=== PATIENT | male | born 1960 ===

== ENCOUNTER 2017-11-30 06:04 | Inpatient (IN) | payer OTHER ==
[2017-11-30] VITALS (15 sets, daily range): BP systolic 75–145; BP diastolic 64–78
[~2017-11-30] VITALS: Ht 180.3 cm; Wt 127.0 kg
[~2017-11-30 06:04] MED LIST: HYDROCHLOROTH12.5 M2 ORAL; LOSARTAN POTASS50 MG ORAL; MELOXICAM7.5 MG/5 M ORAL; ceFAZolin 1gm in D5W 55ml IVPB ONE; celeBREX 200mg Cap **SURGERY PATIENTS ONLY ORAL ONE; oxyCONTIN 20mg tab ORAL ONE
--- NOTE | 2017-11-30 06:52 | Pre-Procedure Note/Attestation ---
Pre-Procedure Note/Attestation Complete Prior to Procedure Planned Procedure: left Procedure Narrative: Lt RON Indications for Procedure Pre-Operative Diagnosis: Left hip arthritis Attestation I attest that I discussed the nature of the procedure; its benefits; risks and complications; and alternatives (and the risks and benefits of such alternatives ), prior to the procedure, with the patient (or the patient's legal contact representative). I attest that, if there was a reasonable possibility of needing a blood transfusion, the patient (or the patient's legal contact representative) was given the [facility] standardized written summary, pursuant to the Angel Sarah Blood Safety Act ([place] Health and Safety Code # 1645, as amended). I attest that I re-evaluated the patient just prior to the surgery and that there has been no change in the patient's H&P, except as documented below: NONE Luis Diaz MD Nov 30, 2017 06:52
[2017-11-30] MEDS ORDERED: Bupivacaine 0.5% Inj 30 ml vial INJ ONE ×2 (07:02→09:41)
[2017-11-30] MEDS ORDERED: EPINEPHrine 1mg/1ml Amp ONE ×2 (07:02→09:31)
[2017-11-30] MEDS ORDERED: Bacitracin 50000 Units Vial ONE (07:03)
[2017-11-30] MEDS ORDERED: NeoSporin Gu Irrig 1ml Amp IRRIG ONE (07:03)
[2017-11-30] MEDS ORDERED: Midazolam 2mg/2ml Inj ONE (07:18)
[2017-11-30] MEDS ORDERED: fentaNYL 100 mcg/2 mL IV ONE (07:18)
[2017-11-30] MEDS ORDERED: Propofol 200mg/20ml IV ONE (07:20)
[2017-11-30] MEDS ORDERED: Succinylcholine 20mg/ml 10ml vial ONE (07:25)
[2017-11-30] MEDS ORDERED: Zemuron 50mg/5ml Inj IV ONE (07:25)
[2017-11-30] MEDS ORDERED: Acetaminophen (Non formulary) 100 ML IV ONE (07:30)
[2017-11-30] MEDS ORDERED: Tranexamic Acid(Epistaxis Use) TOPIC ONE ×2 (07:30)
[2017-11-30] MEDS ORDERED: Tranexamic Acid 1,000 MG in NS 65 ML IVPB ONE (07:45)
--- NOTE | 2017-11-30 08:15 | Anethesia Preoperative Eval ---
Anesthesia Pre-op PMH/ROS General Date of Evaluation: Nov 30, 2017 Time of Evaluation: 07:45 Anesthesiologist: Marycruz ASA Score: ASA 3 Mallampati Score Class I : Soft palate, uvula, fauces, pillars visible Class II: Soft palate, uvula, fauces visible Class III: Soft palate, base of uvula visible Class IV: Only hard plate visible Mallampati Classification: Class III Surgeon: Emily Diagnosis: L hip DJD Surgical Procedure: L hip arthroplasty Anesthesia History: none Social History: current smoker - occasional Family History: no anesthesia problems Allergies: Coded Allergies: No Known Allergies (Unverified , 11/30/17) Medications: see eMAR Past Medical History Cardiovascular: Reports: HTN; Denies: CAD, [place], valve dz, arrhythmia, other Pulmonary: Reports: BULMARO; Denies: asthma, COPD, other Gastrointestinal/Genitourinary: Reports: GERD; Denies: CRI, ESRD, other Neurologic/Psychiatric: Reports: other - chronic pain; Denies: dementia, CVA, depression/anxiety, TIA Endocrine: Reports: DM - borderline; Denies: hypothyroidism, steroids, other HEENT: Denies: cataract (L), cataract (R), glaucoma, IROQUOIS (L), IROQUOIS (R), other Hematology/Immune: Denies: anemia, DVT, bleeding disorder, other Musculoskeletal/Integumentary: Reports: DJD Other: obesity PMH Narrative: as above PSxH Narrative: Cholecystectomy Anesthesia Pre-op Phys. Exam Physician Exam Last Vital Signs Date Time Temp Pulse Resp B/P (MAP) Pulse Ox O2 Delivery O2 Flow Rate FiO2 11/30/17 07:18 Room Air 11/30/17 07:06 97.0 51 18 145/75 (98) 96 97.0 Constitutional: NAD Neurologic: CN 2-12 intact Cardiovascular: RRR, no M/R/G Respiratory: CTA Gastrointestinal: other - obesity Airway Exam Mallampati Score: Class III MO: full Neck: short ROM: limited Teeth: intact Dentures: no upper, no lower Anesthesia Pre-op A/P Labs see chart Studies Pre-op Studies: EKG - SR, CXR - WNL, PFTS - obstructive pattern, BULMARO clinically Risk Assessment & Plan Assessment: ASA 3 Plan: GA wit ETT Status Change Before Surgery: No Pre-Antibiotics Drug: Ancef 2gr. Given Within 1 Hr of Incision: Yes Time Given: 09:10 Gregg Joel MD Nov 30, 2017 08:15
[2017-11-30] MEDS ORDERED: Ketorolac 30mg Inj ONE (09:25)
[2017-11-30] MEDS ORDERED: Morphine Sulfate 10mg/ml Inj ONE (09:25)
[2017-11-30] MEDS ORDERED: Sodium Chloride 10ml vial INJ ONE (09:34)
[2017-11-30] MEDS ORDERED: LR 1000ml 1,000 ML IVLG SCH (10:28)
[2017-11-30] MEDS ORDERED: Meperidine 50mg/ml Inj(FOR RIGORS ONLY) IV PRN (10:30)
[2017-11-30] MEDS ORDERED: DiphenhydrAMINE 50mg/ml Inj IVP PRN (10:30)
[2017-11-30] MEDS ORDERED: Ketorolac 30mg Inj IV PRN (10:30)
[2017-11-30] MEDS ORDERED: Midazolam 2mg/2ml Inj IVP PRN (10:30)
[2017-11-30] MEDS ORDERED: fentaNYL 100 mcg/2 mL IV PRN (10:30)
--- NOTE | 2017-11-30 11:36 | Diagnostic Imaging Report ---
Indication: Hip replacement surgery Findings: Single AP view of the pelvis was performed. Single, limited portable radiograph of the left hip obtained intraoperatively showing the acetabular portion of the prosthesis. IMPRESSION: Intraoperative imaging
--- NOTE | 2017-11-30 11:43 | Brief Operative Note ---
Immediate Post Operative Note Operative Note Chief Complaint: left hip pain Pre-op Diagnosis: left hip arthritis Procedure: left aundrea Post-op Diagnosis: same as pre-op Findings: consistent w/pre-op dx studies Surgeon: md gilbert Truck Driving: radha bnod Anesthesiologist: md kimberly Anesthesia: general Specimen: yes Complications: none Condition: stable Fluids: ns Estimated Blood Loss: minimal Drains: none Implant(s) used?: Yes - pitts and nephSapna Mari Nov 30, 2017 11:43
--- NOTE | 2017-11-30 12:03 | Immediate Post-Op Evaluation ---
Immediate Post-Op Evalulation Immediate Post-Op Evalulation Procedure: L total hip arthroplasty Date of Evaluation: Nov 30, 2017 Time of Evaluation: 12:02 IV Fluids: 2200 Blood Products: none Estimated Blood Loss: 300 Urinary Output: 150 Blood Pressure Systolic: 117 Blood Pressure Diastolic: 72 Pulse Rate: 76 Respiratory Rate: 22 O2 Sat by Pulse Oximetry: 99 Temperature (Fahrenheit): 97.8 Pain Score (1-10): 1 Nausea: No Vomiting: No Complications none Patient Status: reacts, patent, extubated, none Hydration Status: adequate Gregg Joel MD Nov 30, 2017 12:03
--- NOTE | 2017-11-30 13:59 | Diagnostic Imaging Report ---
Indication: pain Pelvic trauma and pain Findings: Single AP view of the pelvis was performed. Postoperative film showing a left total hip arthroplasty Yates catheter. Alignment is unremarkable. IMPRESSION: Status post left total hip replacement
[2017-11-30] MEDS ORDERED: Norco 5mg/325mg tab ORAL PRN (15:00)
[2017-11-30] MEDS ORDERED: Morphine Sulfate 2mg/ml Inj IVP PRN ×2 (15:00)
[2017-11-30] MEDS ORDERED: Milk of Magnesia 30ml Ud ORAL PRN (15:00)
--- NOTE | 2017-11-30 17:00 | Operative Note - Dictated ---
DATE OF OPERATION: 11/30/2017 PREOPERATIVE DIAGNOSIS: Left hip end-stage arthritis. POSTOPERATIVE DIAGNOSIS: Left hip end-stage arthritis. PROCEDURE: Left total hip arthroplasty using Dangelo and Nephew system, size 54 R3 cup with 3 dome screws, one 20 mm and one 25 mm, ultra cross-linked cup polyethylene with 20 degree lip, size 7 anthology stem with standard offset neck and a +0 36 mm Oxinium head. SURGEON: Luis Diaz M.D. CADASTRAL ENGINEER: Nguyễn Yu ANESTHESIOLOGIST: Gregg Joel M.D. ANESTHESIA: General anesthesia. ESTIMATED BLOOD LOSS: Less than 20 mL. COMPLICATIONS: None. BRIEF HISTORY: The patient is a pleasant, 57-year-old gentleman who has had ongoing left hip pain. He has had severe arthritis. He failed nonoperative treatment. After full discussion of risks and benefits of surgery and complications associated with it including infection, bleeding, neurovascular complication, possibility of instability, possible dislocation, possible DVT, PE, leg length discrepancy, shortening and other complications that may arise. With time, he opted for surgical treatment as described above. OPERATIVE PROCEDURE: The patient was brought to the operating table and was placed supine. All pressure points were well padded. General LMA anesthesia was induced, and the patient was placed in right lateral decubitus position with the left hip up. The patient was stabilized using pegboard. All pressure points were well padded. The left hip was prepped and draped in usual sterile fashion and preop antibiotics were given and tranexamic acid was given and a time-out was performed. At this point, a standard posterolateral approach to hip was undertaken. Incision was taken through the subcutaneous tissue and the tensor fascia was opened. The gluteal fascia was opened, retractors were placed in, and short external rotators were released and capsule was T'd and that was tagged for later closure through drill holes into the greater trochanter. At this point, the femoral head was identified and hip was dislocated. Retractors were placed in and a standard cut of the femoral neck was performed. At this point, the acetabular retractors were placed in anteriorly, superiorly, and inferiorly. The labrum was resected. There was a medial osteophyte, which was reamed out with a 47 mm reamer. Subsequently, a sequential reaming was performed all the way up to 54 mm recreating 40 degrees of anteversion and 40 degrees of inclination. This provided excellent alignment of the acetabulum. There was good punctate bleeding from acetabulum. At this point, trialing was performed and it was a great fit and the trial was well-seated. Therefore, at this point, a 54 mm R3 cup was then placed and locked in with the good anteversion and inclination as described. There was excellent stability of the cup. Subsequently 2 dome screws were placed in, one 25 mm and one 20 mm, for additional stability. At this point, wounds were thoroughly irrigated using Simpulse irrigation and dried up and a 20-degree lipped polyethylene was locked in without any complication. This was checked and rechecked and appeared to be very stable. At this point, care was given to the femur. The retractors were removed and femoral retractors were placed in. The entry point into the femur was lateralized using a paperboard box maker and canal finder was placed in. Sequential broaching was performed from [address] up to size 7, which appeared to be excellent fit. At this point, the trialing was performed with a standard neck and 36 mm head with +0 length and this was reduced. There was excellent leg length as measured by the knees and heel, as well as excellent range of motion and stability at 0, 30 degrees, 45 degrees, and 75 degrees of flexion with hip in neutral adduction and internal rotation of 75 to 80 degrees. There was no anterior instability. At this point, wounds were thoroughly irrigated. Intraoperative x-rays revealed that the implants were in excellent position. At this point, the trial implants were removed and size 7 anthology stem was then placed in and was seated. Trialing was performed with a +0 neck head and appeared to be excellent stability and leg length as described previously. At this point, the Rodriguez taper was then dried and trials were removed and actual Oxinium 36 mm +0 neck was applied and locked in without any complications. It was ensured that the Rodriguez taper was well engaged. At this point, the entire construct was reduced, and range of motion and stability and leg lengths were checked one last time and they appeared to be perfect. At this point, all wounds were thoroughly irrigated using copious amount of fluid with Simpulse irrigation. Short external rotators were closed using #2 FiberWire suture through drill holes in the greater trochanter. The tensor fascia was closed using #1 Vicryl suture. Skin was closed using 2-0 Vicryl suture and 3-0 Monocryl suture. Dermabond was applied. Abduction pillow was applied. All lap counts and instrument counts were correct. The patient was then taken to recovery in stable condition. All lap counts and instrument counts were correct. Luis Diaz M.D. DR: THOMAS JOB#: [id number] CC:
[2017-11-30] MEDS: Docusate 100mg cap ORAL SCH (18:17)
[2017-11-30] MEDS: ceFAZolin sod 2 GM in D5W 110 ML IV SCH (18:17)
[2017-11-30] MEDS: D5 1/2NS w/KCl 20mEq 1,000 ML IV SCH (18:18)
--- NOTE | 2017-11-30 19:37 | General Progress Note ---
Assessment/Plan Status Narrative s/p thr [perioperative expected bloo dloss hypertenison historyof BULMARO over weight Assessment/Plan PT T DVT prophylaxis pain control monitor cbc bp meds with hold parameter periopeartive antibiotic prophyalxis bulmaro cpap ps 10 and follow continous pulse ox order Subjective Date patient seen: Nov 30, 2017 Time patient seen: 19:35 Constitutional: Reports: no symptoms HEENT: Reports: no symptoms Cardiovascular: Reports: no symptoms Respiratory: Reports: no symptoms Allergies: Coded Allergies: No Known Allergies (Unverified , 11/30/17) Objective Last 24 Hour Vital Signs Date Time Temp Pulse Resp B/P (MAP) Pulse Ox O2 Delivery O2 Flow Rate FiO2 11/30/17 16:00 98.2 57 18 131/68 (89) 96 98.2 11/30/17 14:30 97.9 55 18 132/75 (94) 94 97.9 11/30/17 13:49 97.6 53 18 137/72 (93) 95 97.6 11/30/17 13:25 98.3 74 14 75/78 100 Nasal Cannula 3 98.3 11/30/17 13:15 63 15 135/78 100 Nasal Cannula 3 11/30/17 13:00 62 13 122/68 100 Nasal Cannula 3 11/30/17 12:45 57 13 127/69 100 Nasal Cannula 3 11/30/17 12:30 58 13 117/68 100 Nasal Cannula 3 11/30/17 12:20 67 13 125/72 100 Nasal Cannula 3 11/30/17 12:10 70 16 122/71 100 Simple Mask 6 11/30/17 12:03 208.0 76 22 99 11/30/17 12:00 78 17 117/72 99 Simple Mask 6 11/30/17 11:55 73 22 120/64 98 Simple Mask 6 11/30/17 11:51 97.6 74 22 117/67 98 Simple Mask 6 97.6 11/30/17 07:18 Room Air 11/30/17 07:06 97.0 51 18 145/75 (98) 96 97.0 Intake and Output 11/29/17 11/30/17 18:59 06:59 # Voids 1 Height (Feet): 5 Height (Inches): 11.00 Weight (Pounds): 280 General Appearance: WD/WN Neck: supple Cardiovascular: normal rate, regular rhythm, no JVD Respiratory/Chest: lungs clear Abdomen: soft Extremities: other - no edema Jacky Elias MD Nov 30, 2017 19:37
[2017-11-30] MEDS: oxyCONTIN 20mg tab ORAL SCH (20:42)
[2017-12-01 00:16] VITALS: BP 137/66
[2017-12-01] MEDS: ceFAZolin sod 2 GM in D5W 110 ML IV SCH (01:31)
[2017-12-01 04:01] VITALS: BP 137/73
[2017-12-01] MEDS: D5 1/2NS w/KCl 20mEq 1,000 ML IV SCH ×2 (05:57→18:40)
[2017-12-01] MEDS: Morphine Sulfate 4mg/ml Inj IVP PRN ×2 (07:58→13:38)
[2017-12-01] MEDS: hydroCHLOROthiazide 12.5mg TAB ORAL SCH (08:04)
[2017-12-01] MEDS: Docusate 100mg cap ORAL SCH ×3 (08:05→18:43)
[2017-12-01] MEDS: Losartan 50mg tab ORAL SCH (08:05)
[2017-12-01] MEDS: oxyCONTIN 20mg tab ORAL SCH ×2 (08:05→21:29)
--- NOTE | 2017-12-01 08:08 | Orthopedic Progress Note ---
Orthopedic - Progress Note Subjective Symptoms: c/o post-op hip pain Objective Vital Signs Laboratory Tests Test 12/01/17 07:30 White Blood Count Pending Red Blood Count Pending Hemoglobin Pending Hematocrit Pending Mean Corpuscular Volume Pending Mean Corpuscular Hemoglobin Pending Mean Corpuscular Hemoglobin Concent Pending Red Cell Distribution Width Pending Platelet Count Pending Mean Platelet Volume Pending Neutrophils (%) (Auto) Pending Lymphocytes (%) (Auto) Pending Monocytes (%) (Auto) Pending Eosinophils (%) (Auto) Pending Basophils (%) (Auto) Pending Sodium Level Pending Potassium Level Pending Chloride Level Pending Carbon Dioxide Level Pending Blood Urea Nitrogen Pending Creatinine Pending Estimat Glomerular Filtration Rate Pending Glucose Level Pending Calcium Level Pending Last 24 Hour Vital Signs Date Time Temp Pulse Resp B/P (MAP) Pulse Ox O2 Delivery O2 Flow Rate FiO2 12/01/17 08:05 153/74 12/01/17 08:05 97.7 12/01/17 07:58 97.7 12/01/17 05:00 54 23 96 Facial 30 12/01/17 04:01 97.7 81 20 137/73 (94) 99 97.7 12/01/17 02:45 77 27 100 Facial 30 12/01/17 01:17 53 22 98 Facial 30 12/01/17 00:16 97.6 54 17 137/66 (89) 99 97.6 11/30/17 22:32 89 22 Nasal Cannula 3.0 32 11/30/17 22:32 57 18 100 Facial 30 11/30/17 21:00 Room Air 11/30/17 20:25 97.4 53 16 144/70 (94) 97 97.4 11/30/17 16:00 98.2 57 18 131/68 (89) 96 98.2 11/30/17 14:30 97.9 55 18 132/75 (94) 94 97.9 11/30/17 13:49 97.6 53 18 137/72 (93) 95 97.6 11/30/17 13:25 98.3 74 14 75/78 100 Nasal Cannula 3 98.3 11/30/17 13:15 63 15 135/78 100 Nasal Cannula 3 11/30/17 13:00 62 13 122/68 100 Nasal Cannula 3 11/30/17 12:45 57 13 127/69 100 Nasal Cannula 3 11/30/17 12:30 58 13 117/68 100 Nasal Cannula 3 11/30/17 12:20 67 13 125/72 100 Nasal Cannula 3 11/30/17 12:10 70 16 122/71 100 Simple Mask 6 11/30/17 12:03 208.0 76 22 99 11/30/17 12:00 78 17 117/72 99 Simple Mask 6 11/30/17 11:55 73 22 120/64 98 Simple Mask 6 11/30/17 11:51 97.6 74 22 117/67 98 Simple Mask 6 97.6 I&O Intake and Output 11/30/17 12/01/17 19:00 07:00 Intake Total 2650 ml 480 ml Output Total 550 ml 950 ml Balance 2100 ml -470 ml Intake Oral 250 ml 480 ml IV Total 2400 ml Output Urine Total 350 ml 950 ml Stool Total 0 ml Estimated Blood Loss 200 ml # Voids 1 Wound: clean, dry, intact Drains: none Neuro Status: normal Vascular Status: normal Additional Comments xray reviewed- excellent Assessment Post-op Diagnosis POD 1 Procedure Performed left aundrea Plan Plan: PT, pain management, discharge plan - to home with services and DME on wednesday, other - fu todays labs Sapna Toribio Dec 01, 2017 08:08
[2017-12-01 08:11] LABS: BASOPHILS % (AUTO) 1.1 % (0.0-2.0); EOSINOPHILS % (AUTO) 0.5 % (0.0-3.0); HEMATOCRIT 41.3 % (42.0-52.0); HEMOGLOBIN 14.7 G/DL (14.2-18.0); MEAN CORPUSCULAR VOLUME 90 FL (80-99); NEUTROPHILS % (AUTO) 71.4 % (45.0-75.0); PLATELET COUNT 165 K/UL (150-450); RED BLOOD COUNT 4.57 M/UL (4.70-6.10); RED CELL DISTRIBUTION WIDTH 11.8 % (11.6-14.8); WHITE BLOOD COUNT 11.7 K/UL (4.8-10.8)
--- NOTE | 2017-12-01 08:13 | 48 Hour Post Anesthesia Eval ---
Post Anesthesia Evaluation Procedure: L total hip arthroplasty Date of Evaluation: Dec 01, 2017 Time of Evaluation: 07:10 Blood Pressure Systolic: 137 0: 73 Pulse Rate: 54 Respiratory Rate: 23 Temperature (Fahrenheit): 97.7 O2 Sat by Pulse Oximetry: 96 Airway: patent Nausea: No Vomiting: No Pain Intensity: 2 Hydration Status: adequate Cardiopulmonary Status: at baseline Mental Status/LOC: patient returned to baseline Post-Anesthesia Complications: 0 Follow-up care needed: N/A - further care as perprimary team Adrianna Chambers MD Dec 01, 2017 08:13
[2017-12-01 08:15] LABS: ANION GAP 6 mmol/L (5-15); BLOOD UREA NITROGEN 13 mg/dL (7-18); CALCIUM 8.4 MG/DL (8.5-10.1); CARBON DIOXIDE 27 MMOL/L (21-32); CHLORIDE 101 MMOL/L (98-107); POTASSIUM 4.2 MMOL/L (3.5-5.1); SODIUM 134 MMOL/L (136-145)
[2017-12-01] MEDS ORDERED: Zemuron 50mg/5ml Inj IV ONE (08:30)
[2017-12-01] MEDS ORDERED: NS Irrig 2000ml IRRIG ONE (08:30)
[2017-12-01] MEDS ORDERED: Neostigmine 1mg/ml 10ml Inj ONE (08:30)
[2017-12-01] MEDS ORDERED: Sterile Water Irrig 1000ml IRRIG ONE (08:30)
[2017-12-01] MEDS ORDERED: NS Irrig 1000ml ONE (08:30)
[2017-12-01] MEDS ORDERED: Glycopyrrolate 0.2mg/ml 1ml Vial ONE ×2 (08:30)
[2017-12-01] MEDS: celeBREX 200mg Cap **SURGERY PATIENTS ONLY ORAL SCH (11:25)
[2017-12-01] MEDS: Enoxaparin 40mg Inj SUBQ SCH (11:26)
[2017-12-01 13:12] VITALS: BP 154/61
[2017-12-01] MEDS: HYDROcodone/Acetamin 7.5/325 tab ORAL PRN (18:43)
[2017-12-01 20:00] VITALS: BP 127/73
--- NOTE | 2017-12-01 21:44 | General Progress Note ---
Assessment/Plan Assessment/Plan s/pTHr perioperative blood loss posst op anemia doing well pt ot dvt prophyalxis pain control monitor blood pressure needs more aggressive physical therapy. Subjective Date patient seen: Dec 01, 2017 Time patient seen: 21:42 Constitutional: Reports: no symptoms HEENT: Reports: no symptoms Cardiovascular: Reports: no symptoms Allergies: Coded Allergies: No Known Allergies (Unverified , 11/30/17) Subjective has some pain not waslkin gmuch stillhas a gfoley adn ivf running. Objective Last 24 Hour Vital Signs Date Time Temp Pulse Resp B/P (MAP) Pulse Ox O2 Delivery O2 Flow Rate FiO2 12/01/17 19:42 98.0 12/01/17 18:43 98.0 12/01/17 14:08 98.0 12/01/17 13:38 98.0 12/01/17 13:12 98.0 85 20 154/61 (92) 100 98.0 12/01/17 09:00 Room Air 12/01/17 08:13 207.9 54 23 96 12/01/17 08:05 153/74 12/01/17 08:05 97.7 12/01/17 07:58 97.7 12/01/17 05:00 54 23 96 Facial 30 12/01/17 04:01 97.7 81 20 137/73 (94) 99 97.7 12/01/17 02:45 77 27 100 Facial 30 12/01/17 01:17 53 22 98 Facial 30 12/01/17 00:16 97.6 54 17 137/66 (89) 99 97.6 11/30/17 22:32 89 22 Nasal Cannula 3.0 32 11/30/17 22:32 57 18 100 Facial 30 Intake and Output 11/30/17 12/01/17 19:00 07:00 Intake Total 2650 ml 480 ml Output Total 550 ml 950 ml Balance 2100 ml -470 ml Intake Oral 250 ml 480 ml IV Total 2400 ml Output Urine Total 350 ml 950 ml Stool Total 0 ml Estimated Blood Loss 200 ml # Voids 1 Laboratory Tests 12/01/17 07:30: White Blood Count 11.7H, Red Blood Count 4.57L, Hemoglobin 14.7, Hematocrit 41.3L, Mean Corpuscular Volume 90, Mean Corpuscular Hemoglobin 32.1H, Mean Corpuscular Hemoglobin Concent 35.5, Red Cell Distribution Width 11.8, Platelet Count 165, Mean Platelet Volume 8.6, Neutrophils (%) (Auto) 71.4, Lymphocytes (% ) (Auto) 15.0L, Monocytes (%) (Auto) 12.0H, Eosinophils (%) (Auto) 0.5, Basophils (%) (Auto) 1.1, Sodium Level 134L, Potassium Level 4.2, Chloride Level 101, Carbon Dioxide Level 27, Anion Gap 6, Blood Urea Nitrogen 13, Creatinine 1.0, Estimat Glomerular Filtration Rate > 60, Glucose Level 139H, Calcium Level 8.4L Height (Feet): 5 Height (Inches): 11.00 Weight (Pounds): 280 General Appearance: WD/WN Neck: non-tender Cardiovascular: normal rate, regular rhythm, no JVD Respiratory/Chest: lungs clear Abdomen: non tender, soft Extremities: other - no clubbing Jacky Elias MD Dec 01, 2017 21:44
[2017-12-02] VITALS: BP 123/76
[2017-12-02 04:00] VITALS: BP 123/71
[2017-12-02 07:51] LABS: BASOPHILS % (AUTO) 1.2 % (0.0-2.0); EOSINOPHILS % (AUTO) 0.8 % (0.0-3.0); HEMATOCRIT 41.1 % (42.0-52.0); HEMOGLOBIN 14.4 G/DL (14.2-18.0); LYMPHOCYTES % (AUTO) 19.1 % (20.0-45.0); MEAN CORPUSCULAR VOLUME 91 FL (80-99); MONOCYTES % (AUTO) 11.8 % (1.0-10.0); PLATELET COUNT 156 K/UL (150-450); RED BLOOD COUNT 4.53 M/UL (4.70-6.10); RED CELL DISTRIBUTION WIDTH 11.6 % (11.6-14.8); WHITE BLOOD COUNT 11.6 K/UL (4.8-10.8)
[2017-12-02 08:00] VITALS: BP 139/70
--- NOTE | 2017-12-02 08:39 | Orthopedic Progress Note ---
Orthopedic - Progress Note Subjective Symptoms: c/o post-op hip pain Objective Vital Signs Last 24 Hour Vital Signs Date Time Temp Pulse Resp B/P (MAP) Pulse Ox O2 Delivery O2 Flow Rate FiO2 12/02/17 04:00 99.4 73 20 123/71 (88) 98 99.4 12/02/17 00:00 97.9 83 18 123/76 (92) 94 97.9 12/01/17 21:00 Room Air 12/01/17 20:00 97.7 79 17 127/73 (91) 94 97.7 12/01/17 19:42 98.0 12/01/17 18:43 98.0 12/01/17 14:08 98.0 12/01/17 13:38 98.0 12/01/17 13:12 98.0 85 20 154/61 (92) 100 98.0 12/01/17 09:00 Room Air I&O Intake and Output 12/01/17 12/02/17 19:00 07:00 Intake Total 1465 ml 930 ml Output Total 3000 ml 1400 ml Balance -1535 ml -470 ml Intake Oral 1390 ml 780 ml IV Total 75 ml 150 ml Output Urine Total 3000 ml 1400 ml # Voids 2 2 Wound: clean, dry Drains: none Neuro Status: normal Assessment Post-op Diagnosis Doing great s/p Left RON Arthroplasty Plan Plan: PT, pain management, discharge plan Luis Diaz MD Dec 02, 2017 08:39
[2017-12-02] MEDS: oxyCONTIN 20mg tab ORAL SCH ×2 (09:00→20:31)
[2017-12-02] MEDS: hydroCHLOROthiazide 12.5mg TAB ORAL SCH (09:01)
[2017-12-02] MEDS: Losartan 50mg tab ORAL SCH (09:03)
[2017-12-02] MEDS: Docusate 100mg cap ORAL SCH ×3 (09:03→18:10)
[2017-12-02] MEDS: celeBREX 200mg Cap **SURGERY PATIENTS ONLY ORAL SCH (09:05)
[2017-12-02] MEDS: Enoxaparin 40mg Inj SUBQ SCH (09:07)
--- NOTE | 2017-12-02 09:15 | General Progress Note ---
Assessment/Plan Assessment/Plan s/p THR doing well get venous douplex r/o dvt perioperative blood loss posst op anemia doing well pt ot dvt prophyalxis pain control monitor blood pressure needs more aggressive physical therapy. Subjective Date patient seen: Dec 02, 2017 Time patient seen: 09:13 Constitutional: Reports: no symptoms HEENT: Reports: no symptoms Cardiovascular: Reports: no symptoms Respiratory: Reports: no symptoms Allergies: Coded Allergies: No Known Allergies (Unverified , 11/30/17) Subjective not walking much no fevenorchills no ches tpain has slight leg swelling Objective Last 24 Hour Vital Signs Date Time Temp Pulse Resp B/P (MAP) Pulse Ox O2 Delivery O2 Flow Rate FiO2 12/02/17 09:03 123/71 12/02/17 09:02 99.4 12/02/17 09:00 99.4 12/02/17 04:00 99.4 73 20 123/71 (88) 98 99.4 12/02/17 00:00 97.9 83 18 123/76 (92) 94 97.9 12/01/17 21:00 Room Air 12/01/17 20:00 97.7 79 17 127/73 (91) 94 97.7 12/01/17 19:42 98.0 12/01/17 18:43 98.0 12/01/17 14:08 98.0 12/01/17 13:38 98.0 12/01/17 13:12 98.0 85 20 154/61 (92) 100 98.0 Intake and Output 12/01/17 12/02/17 18:59 06:59 Intake Total 1390 ml 1005 ml Output Total 3000 ml 1400 ml Balance -1610 ml -395 ml Intake Oral 1390 ml 780 ml IV Total 225 ml Output Urine Total 3000 ml 1400 ml # Voids 2 2 Laboratory Tests 12/02/17 06:45: White Blood Count 11.6H, Red Blood Count 4.53L, Hemoglobin 14.4, Hematocrit 41.1L, Mean Corpuscular Volume 91, Mean Corpuscular Hemoglobin 31.7H, Mean Corpuscular Hemoglobin Concent 34.9, Red Cell Distribution Width 11.6, Platelet Count 156, Mean Platelet Volume 7.9, Neutrophils (%) (Auto) 67.0, Lymphocytes (% ) (Auto) 19.1L, Monocytes (%) (Auto) 11.8H, Eosinophils (%) (Auto) 0.8, Basophils (%) (Auto) 1.2 Height (Feet): 5 Height (Inches): 11.00 Weight (Pounds): 280 General Appearance: WD/WN Neck: supple Cardiovascular: normal rate, regular rhythm, no JVD Respiratory/Chest: lungs clear Abdomen: soft Extremities: other - has slihgt edema Jacky Elias MD Dec 02, 2017 09:15
[2017-12-02 12:00] VITALS: BP 119/54
[2017-12-02 16:00] VITALS: BP 103/65
[2017-12-02 20:00] VITALS: BP 140/75
[2017-12-03] VITALS: BP 123/70
[2017-12-03 04:00] VITALS: BP 128/69
[2017-12-03 04:12] VITALS: BP 128/69
[2017-12-03] MEDS: HYDROcodone/Acetamin 7.5/325 tab ORAL PRN (04:12)
[2017-12-03 07:07] LABS: BASOPHILS % (AUTO) 0.9 % (0.0-2.0); EOSINOPHILS % (AUTO) 1.2 % (0.0-3.0); HEMATOCRIT 39.3 % (42.0-52.0); LYMPHOCYTES % (AUTO) 22.5 % (20.0-45.0); MEAN CORPUSCULAR VOLUME 90 FL (80-99); MONOCYTES % (AUTO) 11.4 % (1.0-10.0); PLATELET COUNT 186 K/UL (150-450); RED BLOOD COUNT 4.34 M/UL (4.70-6.10); RED CELL DISTRIBUTION WIDTH 11.5 % (11.6-14.8); WHITE BLOOD COUNT 12.1 K/UL (4.8-10.8)
[2017-12-03 07:53] VITALS: BP 133/68
--- NOTE | 2017-12-03 08:02 | Orthopedic Progress Note ---
Orthopedic - Progress Note Subjective Symptoms: improved, other - slight white count today. dopplers done, negative DVT. no fever- highest temp 99.4 overnight Objective Vital Signs Laboratory Tests Test 12/03/17 05:00 White Blood Count 12.1 K/UL (4.8-10.8) H Red Blood Count 4.34 M/UL (4.70-6.10) L Hemoglobin 14.0 G/DL (14.2-18.0) L Hematocrit 39.3 % (42.0-52.0) L Mean Corpuscular Volume 90 FL (80-99) Mean Corpuscular Hemoglobin 32.2 PG (27.0-31.0) H Mean Corpuscular Hemoglobin Concent 35.6 G/DL (32.0-36.0) Red Cell Distribution Width 11.5 % (11.6-14.8) L Platelet Count 186 K/UL (150-450) Mean Platelet Volume 8.5 FL (6.5-10.1) Neutrophils (%) (Auto) 64.0 % (45.0-75.0) Lymphocytes (%) (Auto) 22.5 % (20.0-45.0) Monocytes (%) (Auto) 11.4 % (1.0-10.0) H Eosinophils (%) (Auto) 1.2 % (0.0-3.0) Basophils (%) (Auto) 0.9 % (0.0-2.0) Last 24 Hour Vital Signs Date Time Temp Pulse Resp B/P (MAP) Pulse Ox O2 Delivery O2 Flow Rate FiO2 12/03/17 07:53 98.3 72 20 133/68 (89) 95 98.3 12/03/17 05:11 99.4 12/03/17 04:12 98.5 75 20 128/69 (88) 95 98.5 12/03/17 04:12 99.4 12/03/17 00:00 99.4 83 22 123/70 (87) 96 99.4 12/02/17 21:30 98.0 12/02/17 21:00 Room Air 12/02/17 20:31 98.0 12/02/17 20:00 98.7 85 20 140/75 (96) 95 98.7 12/02/17 16:00 98.0 98 20 103/65 (78) 98.0 12/02/17 12:00 97.7 78 18 119/54 (75) 98 97.7 12/02/17 10:01 99.4 12/02/17 09:03 123/71 12/02/17 09:02 99.4 12/02/17 09:00 99.4 12/02/17 08:19 84 20 Nasal Cannula 21 12/02/17 08:10 Room Air I&O Intake and Output 12/02/17 12/03/17 19:00 07:00 Intake Total 1500 ml 1280 ml Output Total 1750 ml Balance 1500 ml -470 ml Intake Oral 1500 ml 1280 ml Output Urine Total 1750 ml # Voids 3 5 Wound: clean, dry, intact Drains: none Neuro Status: normal Vascular Status: normal Assessment Post-op Diagnosis POD 3 Procedure Performed left aundrea Plan Plan: discharge to home - with home care. DVT ppx to continue with lovenox. f/ u Dr. Diaz 7-10 days Sapna Toribio Dec 03, 2017 08:02
[2017-12-03] MEDS: celeBREX 200mg Cap **SURGERY PATIENTS ONLY ORAL SCH (08:04)
[2017-12-03] MEDS: Docusate 100mg cap ORAL SCH ×2 (08:04→12:03)
[2017-12-03] MEDS: Losartan 50mg tab ORAL SCH (08:04)
[2017-12-03] MEDS: hydroCHLOROthiazide 12.5mg TAB ORAL SCH (08:04)
--- NOTE | 2017-12-03 08:04 | Discharge Summary ---
Discharge Summary Hospital Course Date of Admission Nov 30, 2017 at 06:04 Date of Discharge 12/03/17 Admitting Diagnosis left hip arthritis Reason for Hospitalization: s/p left RON HPI Miguel Alvares is a 57 year old male who was admitted on Nov 30, 2017 at 06: 04 for Traumatic Arthropathy,Left Hip Consultations MD Curt Procedures Left RON Hospital Course stable. doppler done, no DVT Discharge Condition Upon Discharge: improving, stable Discharge Disposition Patient was discharged to home with home health Sapna Toribio Dec 03, 2017 08:04
[2017-12-03] MEDS: Enoxaparin 40mg Inj SUBQ SCH (08:05)
[2017-12-03] MEDS: oxyCONTIN 20mg tab ORAL SCH (08:22)
--- NOTE | 2017-12-03 08:40 | General Progress Note ---
Assessment/Plan Assessment/Plan s/p THR doing well perioperative blood loss posst op anemia doing well pt ot dvt prophyalxis pain control monitor blood pressure needs more aggressive physical therapy. going jackelyn has pain medicaiton already home PT Subjective Date patient seen: Dec 03, 2017 Time patient seen: 08:39 Constitutional: Reports: no symptoms HEENT: Reports: no symptoms Cardiovascular: Reports: no symptoms Respiratory: Reports: no symptoms Allergies: Coded Allergies: No Known Allergies (Unverified , 11/30/17) Subjective getting better ambulating well no fevernochills ready to go home Objective Last 24 Hour Vital Signs Date Time Temp Pulse Resp B/P (MAP) Pulse Ox O2 Delivery O2 Flow Rate FiO2 12/03/17 08:22 98.3 12/03/17 08:18 Room Air 12/03/17 08:04 133/68 12/03/17 07:53 98.3 72 20 133/68 (89) 95 98.3 12/03/17 05:11 99.4 12/03/17 04:12 98.5 75 20 128/69 (88) 95 98.5 12/03/17 04:12 99.4 12/03/17 00:00 99.4 83 22 123/70 (87) 96 99.4 12/02/17 21:30 98.0 12/02/17 21:00 Room Air 12/02/17 20:31 98.0 12/02/17 20:00 98.7 85 20 140/75 (96) 95 98.7 12/02/17 16:00 98.0 98 20 103/65 (78) 98.0 12/02/17 12:00 97.7 78 18 119/54 (75) 98 97.7 12/02/17 10:01 99.4 12/02/17 09:03 123/71 12/02/17 09:02 99.4 12/02/17 09:00 99.4 Intake and Output 12/02/17 12/03/17 19:00 07:00 Intake Total 1500 ml 1280 ml Output Total 1750 ml Balance 1500 ml -470 ml Intake Oral 1500 ml 1280 ml Output Urine Total 1750 ml # Voids 3 5 Laboratory Tests 12/03/17 05:00: White Blood Count 12.1H, Red Blood Count 4.34L, Hemoglobin 14.0L, Hematocrit 39.3L, Mean Corpuscular Volume 90, Mean Corpuscular Hemoglobin 32.2H, Mean Corpuscular Hemoglobin Concent 35.6, Red Cell Distribution Width 11.5L, Platelet Count 186, Mean Platelet Volume 8.5, Neutrophils (%) (Auto) 64.0, Lymphocytes (%) (Auto) 22.5, Monocytes (%) (Auto) 11.4H, Eosinophils (%) (Auto) 1.2, Basophils (%) (Auto) 0.9 Height (Feet): 5 Height (Inches): 11.00 Weight (Pounds): 280 General Appearance: WD/WN Neck: supple Cardiovascular: normal rate, regular rhythm, no JVD Respiratory/Chest: lungs clear Abdomen: non tender, soft Edema: mild edema Jacky Elias MD Dec 03, 2017 08:40
[2017-12-03 12:00] VITALS: BP 117/62
== END 2017-12-03 14:04 | disposition home or self-care (01) | DRG 470 ==
LOC: SDSOVERFLO 06:04 → 3E 13:45
PROC: 0SRB06Z Replacement of Left Hip Joint with Oxidized Zirconium on Polyethylene Synthetic Substitute, Open Approach (ICD-10-PCS; principal; 2017-11-30 07:30)
DX: M16.12 Unilateral primary osteoarthritis, left hip (principal); I10 Essential (primary) hypertension; G47.33 Obstructive sleep apnea (adult) (pediatric); D64.9 Anemia, unspecified
CPT/HCPCS: 36415; 72170; 80048; 85025; 86850; 86900; 86901; 86920; 87081; 93970; 94003; 94150; 94660; 94664; J2250; J2710